=== PATIENT | female | born 2000 | race African-American/Black ===

== ENCOUNTER 2020-10-04 11:57 | Emergency (ER) | payer OTHER ==
[~2020-10-04] VITALS: Ht 170.2 cm; Wt 117.9 kg
[2020-10-04 12:00] VITALS: BP 124/80
--- NOTE | 2020-10-04 12:00 | NUR ---
ED Nurse Note: walked in to ed c/o nasal congestion and eye infection on right eye onset 2 days ago. temp 98.3 at triage, denies sob or any pain at this time
--- NOTE | 2020-10-04 12:47 | Emergency Room Report ---
History of Present Illness General Chief Complaint: Flu Like Symptoms Source: Patient Present Illness HPI 20-year-old female with no significant past medical history here complaining of 2 days of congestion, sore throat, and right eye pain discharge. Denies any fever chills, diarrhea, loss of taste and smell. Reports that she works for the [employer] and has been wearing a mask every day. Has not taken medication for symptom relief. Appears to be stable with stable vital signs. Denies , abdominal pain, nausea vomiting diarrhea. Allergies: Coded Allergies: No Known Allergies (Unverified , 10/04/20) COVID-19 Screening Contact w/high risk pt: No Experienced COVID-19 symptoms?: Yes COVID-19 Testing performed [employer]: No Patient History Past Medical History: see triage record Past Surgical History: none Pertinent Family History: none Now: No Immunizations: UTD Reviewed Nursing Documentation: PMH: Agreed; PSxH: Agreed Nursing Documentation-PMH Past Medical History: No Stated History Review of Systems All Other Systems: negative except mentioned in HPI Physical Exam Vital Signs Date Time Temp Pulse Resp B/P (MAP) Pulse Ox O2 Delivery O2 Flow Rate FiO2 10/04/20 12:00 98.2 63 16 124/80 (95) 99 Room Air Sp02 EP Interpretation: reviewed, normal General Appearance: no apparent distress, alert, GCS 15, non-toxic Head: normocephalic, atraumatic Eyes: left eye other - conjunctiva injected with yellow dc; bilateral eye PERRL ENT: hearing grossly normal, no angioedema, normal voice Neck: full range of motion, supple/symm/no masses Respiratory: no retraction, no accessory muscle use, speaking full sentences Cardiovascular #1: regular rate, rhythm Gastrointestinal: non-distended Musculoskeletal: back normal Neurologic: alert, motor strength/tone normal, oriented x3, sensory intact, responsive, speech normal Psychiatric: judgement/insight normal, memory normal, mood/affect normal, no suicidal/homicidal ideation Skin: no rash Lymphatic: no adenopathy Medical Decision Making PA Attestation All diagnoses and treatment plans were reviewed and discussed with my supervising physician Dr. Brunson Diagnostic Impression: Primary Impression: Upper respiratory infection Additional Impression: Bacterial conjunctivitis ER Course 20-year-old female with no significant past medical history here complaining of 2 days of congestion, sore throat, and right eye pain discharge. Denies any fever chills, diarrhea, loss of taste and smell. Reports that she works for the [employer] and has been wearing a mask every day. Has not taken medication for symptom relief. Appears to be stable with stable vital signs. Denies , abdominal pain, nausea vomiting diarrhea. Ddx considered but are not limited to: bacterial conjunctivitis, allergic conjunctivitis, viral conjunctivitis, periorbital cellulitis, global trauma Coronavirus, upper respiratory infection, pharyngitis Vital signs: are WNL, pt. is afebrile H&PE are most consistent with: URI, bacterial conjunctivitis ORDERS: Azithromycin, ofloxacin ophthalmic, prednisone ED INTERVENTIONS: None required at this time. DISCHARGE: At this time pt. is stable for d/c to home. Will provide printed patient care instructions, and any necessary prescriptions. Care plan and follow up instructions have been discussed with the patient prior to discharge. Patient take medication as directed, follow primary care provider, tested for Covid, if worsening symptoms return to the emergency room Chest X-Ray Diagnostic Results Chest X-Ray Diagnostic Results : Chest X-Ray Ordered: Yes # of Views/Limited/Complete: 1 View Indication: Other EP Interpretation: Yes REBECCA Xray: Interpretation reviewed, by supervising MD, and agrees with findings. Interpretation: no consolidation, no effusion, no pneumothorax Impression: No acute disease Electronically Signed by: Kaitlin Land PA-C Last Vital Signs Date Time Temp Pulse Resp B/P (MAP) Pulse Ox O2 Delivery O2 Flow Rate FiO2 10/04/20 12:00 98.2 63 16 124/80 (95) 99 Room Air Disposition: HOME, SELF-CARE Condition: Stable Scripts Ofloxacin (Ofloxacin) 5 Ml Drops 2 DROP OP Q6HR for 7 Days, #5 ML Prov: Kaitlin José 10/04/20 Prednisone* (PREDNISONE*) 20 Mg Tablet 40 MG ORAL DAILY for 5 Days, #10 TAB Prov: Kaitlin José 10/04/20 Azithromycin* (ZITHROMAX*) 250 Mg Tablet 250 MG ORAL DAILY, #6 TAB 0 Refills Take two tables once daily for 1 day, then one tablet once daily for 4 days. Prov: Kailtin José 10/04/20 Patient Instructions: Bacterial Conjunctivitis, [id number], Upper Respiratory Infection, Adult, [id number] Additional Instructions: Take medication as directed, return to getting tested for Covid, follow-up with primary care provider, if worsening symptoms return to the emergency Kaitlin José Oct 04, 2020 12:47
[2020-10-04] MEDS ORDERED: PREDNISONE20 MG ORAL (12:49)
[2020-10-04] MEDS ORDERED: OFLOXACIN10 ML OP (12:49)
[2020-10-04] MEDS ORDERED: ZITHROMAX250 MG ORAL (12:49)
[2020-10-04 12:50] VITALS: BP 118/75
--- NOTE | 2020-10-04 12:50 | NUR ---
ER DISCHARGE NOTE: Patient is cleared to be discharged per ERMD, pt is aox4, on room air, with stable vital signs. pt was given dc and prescription instructions, pt was able to verbalize understanding, pt id band removed. pt is able to ambulate with steady gait. pt took all belongings.
--- NOTE | 2020-10-04 13:14 | Diagnostic Imaging Report ---
Indication: Shortness of breath Technique: XRAY Chest 1v Comparison: None Findings: Limited exam due to underpenetration, likely in part related to body habitus. Heart size is within normal limits. Mediastinal contours are sharp. No definite focal airspace consolidation. No pleural effusion, pneumothorax or radiographic evidence suggesting pulmonary edema. No appreciable acute osseous abnormality. IMPRESSION: Limited exam as above. No definite radiographic evidence of acute cardiopulmonary disease.
== END 2020-10-04 13:00 | disposition home or self-care (01) ==
LOC: EMR 12:54
DX: J06.9 Acute upper respiratory infection, unspecified (principal); H10.9 Unspecified conjunctivitis
CPT/HCPCS: 71045; 99283